=== PATIENT | male | born 1955 | race Caucasian/White ===

== ENCOUNTER 2023-04-28 08:41 | Outpatient (OUT) | payer MEDICARE, SELFPAY ==
--- NOTE | 2023-04-28 08:44 | CT_ITS ---
[address] [address] Patient Name: TALISHA HERNANDEZ MRN: [id number] date: 1955 Sex: M Assigned Patient Location: CT Current Patient Location: CT Accession/Order Number: [id number] Exam Date: 04/28/2023 08:50 Report Date: 04/28/2023 15:57 At the request of: IVON SANDHU Procedure: CT abdomen pelvis wo con EXAMINATION: CT abdomen pelvis wo con HISTORY: Ureteral Stone With Hydronephrosis N13.2 COMPARISON: Ultrasound kidneys 04/15/2023, CT abdomen pelvis 03/16/2023 TECHNIQUE: Axial, Coronal, and Sagittal images were obtained without and/or with IV contrast as indicated by examination type. Dose reduction techniques were achieved by using automated exposure control and/or adjustment of mA and/or kV according to patient size and/or use of iterative reconstruction technique. FINDINGS: LUNG BASES: No visible pulmonary or pleural disease. LIVER: No enlargement, atrophy, suspicious density, or significant focal lesion. BILIARY: Cholecystectomy. PANCREAS: No lesion, fluid collection, or abnormal duct dilatation. SPLEEN: No enlargement or focal lesion. ADRENALS: No mass or enlargement. KIDNEYS: 5 mm nonobstructing stone within distal left ureter adjacent the ureterovesical junction. BOWEL/MESENTERY: Numerous prominent diverticula along the descending and sigmoid colon without acute inflammatory changes. No visible mass, obstruction, or bowel wall thickening. Normal appendix. AORTA/VASCULAR: No aneurysm or dissection. RETROPERITONEUM: No mass or adenopathy. LYMPH NODES: No adenopathy. URINARY BLADDER: No visible focal wall thickening, lesion, or calculus. PELVIC ORGANS: Hysterectomy. ABDOMINAL WALL: No mass or hernia. BONES: No bony lesion or fracture. OTHER: Negative. IMPRESSION: 1.Nonobstructing 5 mm stone within distal left ureter at the ureterovesical junction. Additional stones seen within the distal left ureter on 03/16/2023 are no longer present. Electronically authenticated by: SHILA WU Date: 04/28/2023 15:57
== END 2023-04-28 08:42 ==
LOC: CT 08:41
PROVIDERS: PCP Family Medicine; Visit Provider Urology
DX: N13.2 Hydronephrosis with renal and ureteral calculous obstruction (principal)
CPT/HCPCS: 74176

== ENCOUNTER 2023-05-19 07:50 | Outpatient (OUT) | payer MEDICARE, SELFPAY ==
--- NOTE | 2023-05-19 08:13 | ECG_ITS ---
[facility] Test Date: 2023-05-19 Pat Name: Momo Alvarenga Department: Room: - Gender: Male Data Integration Analyst: : 1955 Requested By: MARSHALL PAZ Order Number: [id number] Reading MD: NINO SMITH Measurements Intervals [place] Rate: 73 P: 31 MS: 174 QRS: 12 QRSD: 86 T: 30 QT: 375 QTc: 416 Interpretive Statements SINUS RHYTHM No previous ECG available for comparison Electronically Signed On 05-20-2023 6:49:23 EDT by NINO SMITH
[2023-05-19 09:13] LABS: INR 0.97; Prothrombin Time 10.3 sec (9.0-11.6)
[2023-05-19 10:09] LABS: Anion Gap 11.8; BUN Creatinine Ratio 19.5; Calcium 9.3 mg/dL (8.5-10.1); Carbon Dioxide 28.4 mmol/L (21.0-32.0); Chloride 104 mmol/L (98-107); Estimated GFR (African America >60 (>=60); Estimated GFR (Non-African Ame >60 (>=60); Glucose 121 mg/dL (74-106); Potassium 4.2 mmol/L (3.5-5.1); Sodium 140 mmol/L (136-145)
== END 2023-05-19 07:51 | disposition home or self-care (01) ==
LOC: PST 07:51
PROVIDERS: PCP Family Medicine; Visit Provider Urology
DX: Z01.810 Encounter for preprocedural cardiovascular examination (principal); Z01.812 Encounter for preprocedural laboratory examination; N20.1 Calculus of ureter; I10 Essential (primary) hypertension
CPT/HCPCS: 36415; 80048; 85610; 85730; 87086; 93005

== ENCOUNTER 2023-05-28 12:24 | Day surgery (SDC) | payer MEDICARE, SELFPAY ==
[2023-05-19 08:28] VITALS: BP 122/87; PULSE 80; RESP 16; TEMP 36.3; O2SAT 98
[2023-05-28] VITALS (19 sets, daily range): BP systolic 97–204; BP diastolic 65–87; PULSE 57–84; RESP 5–18; TEMP 35.5–36.4; O2SAT 84–100; BMI 28.9
[2023-05-28] MEDS: LACTATED RINGER'S SOLUTION 1,000 ML 50 ML IV ×2 (12:58→15:37)
[2023-05-28] MEDS: CEFAZOLIN SODIUM/DEXTROSE,ISO 2 GM/50 ML PIGGYBACK IV (13:55)
[2023-05-28] MEDS: IOHEXOL 300 MG/ML - 50 ML BTL INJ (14:16)
--- NOTE | 2023-05-28 14:56 | PM.URSON ---
Urology Surgery Operative Note Operative Note Procedure Date: 05/28/23 Time Out Performed: yes Pre-op Diagnosis: Left distal ureteral stone Post-op Diagnosis: Same Procedures performed: Cystoscopy, left retrograde pyelogram, ureteroscopy laser lithotripsy/stone extraction, stent placement Anesthesia: GETA (LMA, CRNA. Dr. Jonathan Dee ) Primary Surgeon: Cathy Delarosa Complications: none Estimated blood loss (mL): 0 Findings: Moderate bilobar prostatic hypertrophy with mildly elevated bladder neck. Tight, scarred left UO, unable to advance wire. L RPG- filling defect at UVJ, intermittent mild narrowing throughout ureter, no hydronephrosis, extravasation or other filling defects Flat 4 mm dark sharp stone about 1 cm from UVJ, impacted, underwent uncomplicated laser lithotripsy and stone extraction Specimens: left ureteral stone Drains: 4.8Fr x 22-30 cm JJ left ureteral stent on string Incision: none Indications for Procedures: 68 year old male recently diagnosed with multiple left distal ureteral stones was found to have one remaining 5 mm left UVJ stone after a trial of medical expulsive therapy. After discussion of risks/benefits of management options, he elected to proceed with cystoscopy, left retrograde pyelogram, ureteroscopy with laser lithotripsy/stone extraction, possible ureteral stent placement under general anesthesia. Risks were discussed including but not limited to bleeding, pain, infection, damage to surrounding structures, inability to treat the stone/place a stent, and need for additional procedures. The patient understands the stent is not permanent and needs to be removed or exchanged within 3 months to prevent encrustation, infection, invasive procedures and/or permanent renal damage. Detailed description of Procedure: After informed consent was obtained, the patient was brought to the operating room and transferred onto the operating table in supine position. Sequential compression devices were placed on bilateral lower extremities. The patient received the appropriate dose of preoperative IV antibiotics and general anesthesia LMA was induced. They were positioned in modified dorsolithotomy with the appropriate pressure points padded, prepped, and draped in the usual sterile fashion for this procedure. An operative safety timeout was performed confirming the patient's identity, laterality and procedure, and all present agreed to proceed. I began by inserting a 22 [place]ger rigid cystoscope with 30 degree lens into the patient's urethra and bladder without difficulty. There were no bladder tumors, lesions or foreign bodies. Bilateral ureteral orifices were orthotopic and patent. I turned my attention to the left ureteral orifice and a 6- Luxem[place]ger open-ended catheter was inserted into the ureteral orifice and dilute contrast was injected for retrograde pyelogram with findings above. A sensor wire was inserted into the catheter, however unable to advance past the distal ureter despite multiple attempts. Next a semirigid ureteroscope was inserted into the left ureteral orifice carefully. The wire was then inserted and able to bypass the stone, noting kinking of the UVJ/distal ureter. Advancement of wire up into the kidney was confirmed on fluoroscopy. The ureteroscope was advanced alongside the wire until the stone was encountered. A 2.2 tipless basket was unable to grasp the stone due to impaction. A 275 ?m holmium laser fiber was used to break the stone into fragments which were then removed with the basket. After the stone was adequately treated, a full ureteroscopy to the proximal ureter was performed confirming no significant residual stones or fragments remained. Contrast was injected to assist with mapping for the renoscopy, no filling defects, hydronephrosis or extravasation of contrast. Pull down ureteroscopy was performing confirming no stones remained in the ureter. The wire was backloaded through the cystoscope and 4.8Fr x 22-30cm JJ variable length ureteral stent on a string was advanced over the wire, noting adequate curl in the renal pelvis and bladder on fluoroscopic and direct visualization. The bladder was drained and inspected one final time to ensure adequate position of stent and no undue trauma to the bladder was done. The stones sent for pathology and the cystoscope was removed. The string was secured to the ventral phallus with Tegaderm dressing. The patient tolerated the procedure well without complication. The patient was awakened from anesthesia and sent to PACU in stable condition. Plan: Discharge home with instructions to remove stent by the string at home in 4-5 days. Prophy antibiotics and stent pain medications provided. Follow up in 6 weeks with renal US. Other Provider present: No Post Operative care instructions: See discharge instructions Attending Doc Confirm Attending Attestation: Yes
--- NOTE | 2023-05-28 15:34 | PC.NURSE ---
1820 TOOK PATIENT TO THE REST ROOM HE HAS THE SENSATION TO URINATE. PATIENT WAS UNABLE TO URINATE ONLY HAD A SPRAY OF BLOOD TINGED URINE. ENCOURAGED ORAL FLUIDS.
[2023-05-28] MEDS: HYDROMORPHONE HCL 0.5 MG/0.5 ML SYRINGE IV (15:46)
--- NOTE | 2023-05-28 15:57 | PC.NURSE ---
Having burning pain in urethra and c/o bloated feeling; medicated with Dilaudid IV as ordered; has urge to void and urinal in place
[2023-05-28] MEDS: OXYBUTYNIN CHLORIDE 5 MG TAB XL PO (16:05)
--- NOTE | 2023-05-28 16:25 | PC.NURSE ---
States pain on left abdomen; Dr. Delarosa notified and orders received
--- NOTE | 2023-05-28 16:26 | PC.NURSE ---
has urge to void; has stood at bedside and unable to void
[2023-05-28] MEDS: KETOROLAC TROMETHAMINE 30 MG/ML VIAL 15 MG IVP (16:41)
[2023-05-28] MEDS: PHENAZOPYRIDINE 100 MG TABLET 200 MG PO (16:44)
[2023-05-28] MEDS: TAMSULOSIN HCL 0.4 MG CAPSULE PO (16:44)
--- NOTE | 2023-05-28 16:51 | PC.NURSE ---
Medicated with meds as ordered by Dr. Delarosa
--- NOTE | 2023-05-28 17:05 | PC.NURSE ---
pt was bladder scanned and had 119ml of urine in bladder. pt educated to continue drinking and LR is currently running.
[2023-05-28] MEDS: LACTATED RINGER'S SOLUTION 1,000 ML 100 ML IV (17:10)
--- NOTE | 2023-05-28 17:21 | PC.NURSE ---
IV fluids continue infusing; no urge to void at this time; had voided approximately 25cc rust colored urine before bladder scanning done
--- NOTE | 2023-05-28 17:55 | PC.NURSE ---
Stood at bedside and voided approximately 50cc rust colored urine without clots; c/o burning with urination
--- NOTE | 2023-05-28 18:20 | PC.NURSE ---
Voided freely 100cc rust colored urine
[2023-06-04 12:08] LABS: Calcium Oxalate Monohydrate 100 % (.); Size 4x2 mm (.)
== END 2023-05-28 18:21 | disposition home or self-care (01) ==
PROVIDERS: PCP Family Medicine; Visit Provider Urology
PROC: (CPT 52356; principal; 2023-05-28 13:30)
DX: N13.2 Hydronephrosis with renal and ureteral calculous obstruction (principal); N40.0 Benign prostatic hyperplasia without lower urinary tract symptoms; K21.9 Gastro-esophageal reflux disease without esophagitis; E78.5 Hyperlipidemia, unspecified; Z90.49 Acquired absence of other specified parts of digestive tract
CPT/HCPCS: 52356; 74420; 82365; 99999; C1874; J1170; J2704; Q9967

== ENCOUNTER 2023-07-07 07:58 | Outpatient (OUT) | payer MEDICARE, SELFPAY ==
--- NOTE | 2023-07-07 08:12 | US_ITS ---
The [address] [address] Patient Name: TALISHA HERNANDEZ MRN: [id number] date: 1955 Sex: M Assigned Patient Location: US Current Patient Location: US Accession/Order Number: [id number] Exam Date: 07/07/2023 08:15 Report Date: 07/07/2023 08:47 At the request of: IVON SANDHU Procedure: US renal BI EXAM: US renal BI HISTORY: Ureteral Stone N13.2 COMPARISON: None. TECHNIQUE: Real-time ultrasound imaging of the kidneys and bladder. Findings: The bladder is unremarkable. Prevoid volume of 377 mL. The right and left kidneys measure 11.2 and 11.9 cm. Good corticomedullary differentiation bilaterally. No renal stones or collecting system dilatation. No focal mass or perinephric fluid collection. US/US renal BI IMPRESSION: 1. Unremarkable sonographic appearance of the kidneys and bladder. Electronically authenticated by: CATRACHO SHAW Date: 07/07/2023 08:47
== END 2023-07-07 07:59 | disposition home or self-care (01) ==
LOC: US 07:59
PROVIDERS: PCP Family Medicine; Visit Provider Urology
DX: N13.2 Hydronephrosis with renal and ureteral calculous obstruction (principal)
CPT/HCPCS: 76775

== ENCOUNTER 2023-12-22 09:46 | Outpatient (OUT) | payer MEDICARE, SELFPAY ==
[2023-12-22 11:25] LABS: Prostate Specific Antigen Scrn 1.05 ng/mL (<=4.00)
[2023-12-22 11:32] LABS: Alanine Aminotransferase 42 U/L (16-63); Albumin Globulin Ratio 1.3; Alkaline Phosphatase 76 U/L (46-116); Anion Gap 12.3; Aspartate Amino Transferase 18 U/L (15-37); BUN Creatinine Ratio 21.5; Bilirubin Total 0.6 mg/dL (0.2-1.0); Calcium 9.2 mg/dL (8.5-10.1); Carbon Dioxide 28.9 mmol/L (21.0-32.0); Chloride 105 mmol/L (98-107); Chol HDL Ratio 3.1; Cholesterol 160 mg/dL (<=200); Estimated GFR (African America >60 (>=60); Estimated GFR (Non-African Ame >60 (>=60); Glucose 114 mg/dL (74-106); HDL Cholesterol 51 mg/dL (40-60); Potassium 4.2 mmol/L (3.5-5.1); Sodium 142 mmol/L (136-145); Triglycerides 192 mg/dL (<=150); VLDL CHOLESTEROL 38.4 mg/dL
== END 2023-12-22 09:47 | disposition home or self-care (01) ==
LOC: LAB 09:47
PROVIDERS: PCP Family Medicine; Visit Provider Family Medicine
DX: Z12.5 Encounter for screening for malignant neoplasm of prostate (principal); E78.2 Mixed hyperlipidemia; I10 Essential (primary) hypertension
CPT/HCPCS: 36415; 80053; 80061; G0103